=== PATIENT | male | born 1965 | race African-American/Black ===

== ENCOUNTER 2021-02-25 13:09 | Emergency (ER) | payer OTHER ==
[~2021-02-25] VITALS: Ht 177.8 cm; Wt 109.0 kg
[2021-02-25 13:15] VITALS: BP 171/98
[2021-02-25] MEDS ORDERED: LIDOCAINE/EPI/TETRACAINE TOPICAL GEL 3 ML. TP ONE (13:45)
--- NOTE | 2021-02-25 14:32 | ED.ADGEN ---
Past Medical History Past Medical History: No Pertinent History Additional Past Surgical Histo: Right hip surgery, left knee surgery Smoking Status: Current Every Day Smoker Alcohol Use: Occasionally Drug Use: None General Adult EDM: Chief Complaint: PENIS PROBLEM HPI: HPI: Patient is a 55 year old AA male who presents emergency department with complaints of his scrotum being stuck in his zipper. Patient states he was zipping up his pants when he asked zipped his scrotum into the zipper. He denies any bleeding, numbness, or tingling at the site. He reports that the area is very painful. He currently rates pain 10 out of 10 on pain scale, he denies taking any medications prior to arrival for relief of the discomfort. Patient denies any testicular pain. He is unsure when his last tetanus immunization was.[id number] Review of Systems: Review of Systems: Complete ROS is negative unless otherwise noted in HPI. Current Medications: Current Medications Medications (Trade) Dose Ordered Sig/Irvin Start Time Stop Time Status Last Admin Dose Admin Tetracaine/ Epinephrine/ Lidocaine (Let ([id number]) Gel) 3 ml 1X ONCE 02/25/21 13:45 02/25/21 13:46 DC 02/25/21 13:50 3 ML Allergies: Allergies: Allergies Coded Allergies Type Severity Reaction Last Updated Verified No Known Drug Allergies 06/20/14 No Physical Exam: PE: See Above Constitutional: Well developed, well nourished, no acute distress, non-toxic appearance, obese. [] HENT: Normocephalic, atraumatic, bilateral external ears normal, nose normal. [] Eyes: PERRLA, EOMI, conjunctiva normal, no discharge. [] Neck: Normal range of motion, no stridor. [] Cardiovascular:Heart rate regular rhythm Lungs & Thorax: Respirations even and unlabored, no retractions, no respiratory distress Male : Scrotum is entrapped in the patient's zipper of his shorts, no testicular tenderness, no bleeding Skin: Warm, dry, no erythema, no rash. [] Extremities: No cyanosis, ROM intact, no edema. [] Neurologic: Alert and oriented X 3, no focal deficits noted. [] Psychologic: Affect normal, judgement normal, mood normal. [] Current Patient Data: Vital Signs: Vital Signs Date Time Temp Pulse Resp B/P (MAP) Pulse Ox O2 Delivery O2 Flow Rate FiO2 02/25/21 13:15 98.0 99 20 98 98.0 EKG: EKG: [] Heart Score: C/O Chest Pain: No Risk Scores: Score 0 - 3: 2.5% MACE over next 6 weeks - Discharge Home Score 4 - 6: 20.3% MACE over next 6 weeks - Admit for Clinical Observation Score 7 - 10: 72.7% MACE over next 6 weeks - Early Invasive Strategies Radiology/Procedures: Radiology/Procedures: Topical let was applied to the patient's scrotum where the zipper was trapped. Full anesthesia was not achieved with the topical application. 1% plain lidocaine was injected into the scrotum at the site of the zipper by Dr. Mark. Once anesthesia was achieved trauma meño were used to cut the shorts away from the patient. After the scrotum was freed from the pants Dr. Christian and myself used trauma meño were to dismantle the zipper. There was a small less than 1 mm abrasion to the scrotum, no tear or laceration of the scrotum following the removal of the zipper. [] Course & Med Decision Making: Course & Med Decision Making Pertinent Labs and Imaging studies reviewed. (See chart for details) [] Dragon Disclaimer: Dragon Disclaimer: This electronic medical record was generated, in whole or in part, using a voice recognition dictation system. Departure Departure Impression: Primary Impression: Scrotal injury Additional Impressions: Need for Tdap vaccination Abrasion of scrotum Disposition: 01 DC HOME SELF CARE/HOMELESS Condition: STABLE Referrals: NO PCP (PCP) Patient Instructions: Abrasion, [id number], Scrotal Hematoma, VIS, Tetanus, Diphtheria (Td); Tetanus, Diphtheria, Pertussis (Tdap) - CDC Additional Instructions: You may take Tylenol or ibuprofen as needed for pain. Apply ice to the affected area if swelling develops. Follow-up with your primary care doctor for reevaluation in the next 1 to 2 days, return to the ER if your symptoms worsen or fever develops. [facility] [address] [place] [address] [facility] [address] [place], [place] [id number] [address] [place] [address] [facility] [address] [place] [address] [facility] [address] [place] [address] [facility] [address] [place] [address] [facility] [place] [address] [place] [address] [facility] [address] [place] [address] [facility] [address] [place] [address] [facility] [address] [place] [address] Problem Qualifiers Primary Impression: Scrotal injury Encounter type: initial encounter Qualified Codes: S39.94XA - Unspecified injury of external genitals, initial encounter Additional Impressions: Abrasion of scrotum Encounter type: initial encounter Qualified Codes: S30.813A - Abrasion of scrotum and testes, initial encounter CHANG [facility] [employer] Feb 25, 2021 14:32
[2021-02-25] MEDS ORDERED: DIPH,PERTUSS(ACELL),TET VAC/PF 0.5 ML SYRINGE. VAX IM ONE (14:45)
== END 2021-02-25 14:42 | disposition home or self-care (01) ==
LOC: ER 13:09
DX: S30.813A Abrasion of scrotum and testes, initial encounter (principal); F17.200 Nicotine dependence, unspecified, uncomplicated; W23.0XXA Caught, crushed, jammed, or pinched between moving objects, initial encounter; Y93.89 Activity, other specified; Y92.89 Other specified places as the place of occurrence of the external cause; Y99.8 Other external cause status
CPT/HCPCS: 90471; 90715; 99283-25